=== PATIENT | male | born 1940 ===

== ENCOUNTER → 2023-07-07 14:24 | Outpatient (REF) | payer MEDICARE, BC, SELFPAY ==
[2023-07-07 14:44] LABS: % Basophils 0.9 % (0-2); % Eosinophils 1.3 % (0-6); % Immature Granulocytes 0.4 % (0-0.5); % Lymphocytes 13.4 % (20.5-51.1); % Monocytes 5.2 % (1.7-9.3); % Neutrophils 78.8 % (42.2-75.2); Absolute Basophils 0.1 10^3/uL (0-0.2); Absolute Eosinophils 0.2 10^3/uL (0-0.7); Absolute Immature Granulocytes 0.1 10^3/uL (0-0.05); Absolute Lymphocytes 1.8 10^3/uL (1.2-3.4); Absolute Monocytes 0.7 10^3/uL (0.1-0.6); Absolute Neutrophils 10.8 10^3/uL (1.4-6.5); Hematocrit 41.1 % (39.0-52.0); Hemoglobin 14.3 g/dL (13.0-18.0); Mean Corp Hgb Conc. 34.8 g/dL (33.0-37.0); Mean Corpuscular Hgb 28.8 pg (27.0-31.0); Mean Corpuscular Volume 82.9 fL (80.0-94.0); Mean Platelet Volume 9.7 fL (7.4-10.4); Nucleated Red Blood Cells % 0 % (-); Platelet Count 384 10^3/uL (130-400); Red Blood Cell Count 4.96 10^6/uL (4.70-6.10); Red Cell Dist. Width 13.3 % (11.5-14.5); White Blood Cell Count 13.7 10^3/uL (4.8-10.8)
[2023-07-07 15:00] LABS: ALT (SGPT) < 10 U/L (0-50); AST (SGOT) 17 U/L (17-59); Albumin 3.9 g/dl (3.5-5.0); Alkaline Phosphatase 123 U/L (38-126); Blood Urea Nitrogen 31 mg/dl (9-20); Calcium 9.5 mg/dl (8.4-10.2); Carbon Dioxide 24 mmol/L (22-30); Chloride 102 mmol/L (98-107); Glucose 123 mg/dl (70-99); Potassium 3.9 mmol/L (3.5-5.1); Sodium 139 mmol/L (135-145); Total Bilirubin 0.7 mg/dl (0.2-1.3); eGFR > 60.00
== END ==
LOC: OLABPATH 14:24
PROVIDERS: ATTENDING PHYSICIAN Internal Medicine
DX: F03.90 Unspecified dementia, unspecified severity, without behavioral disturbance, psychotic disturbance, mood disturbance, and anxiety (principal); G20.A1 Parkinson's disease without dyskinesia, without mention of fluctuations
CPT/HCPCS: 36415; 80053; 85025

== ENCOUNTER 2023-07-13 05:43 | Emergency (ER) | payer MEDICARE, BC, SELFPAY ==
[2023-07-13 05:43] VITALS: BMI 19.2
[2023-07-13 05:50] VITALS: BP 145/61
--- NOTE | 2023-07-13 06:12 | ED.GENMED ---
History of Present Illness
General
Chief Complaint: Catheter/Tube Problem
Source: patient and [facility] records
Exam Limitations: none
Time Seen by Provider: 07/13/23 06:04
Nursing documentation reviewed up to this point in time: agreed with
Travel History
Have you had any contact with someone who has COVID-19?: No
Do you have any symptoms of coronavirus? Fever > 100 degrees, chills, cough, shortness of breath, sore throat, loss of taste or smell, muscle aches, or headache?: No
History of Present Illness
History of Present Illness:
82-year-old male with a past medical history of Parkinson's disease, chronic urinary retention with chronic Lopez catheter who presents to the emergency department via EMS from the [facility] [place] where he lives in [facility]; he presents
after accidentally dislodging his chronic Lopez catheter. He says that he was 'wrestling with his clothes' and tossing and turning in bed last night and accidentally dislodged his catheter. I spoke with the nursing staff, they report it was an 18
Jordanian catheter. It was maintained in place due to urinary retention he says related to his Parkinson's disease. He was sent to the emergency room for assessment. He denies any urethral pain or any other complaints today.
Review of Systems
Review of Systems
All Other Systems: ROS reviewed and negative except as documented in HPI and ROS
Constitutional: Denies fever
Respiratory: Denies trouble breathing
Cardiac: Denies chest pain
ABD/GI: Denies abdominal pain
Musculoskeletal: Denies neck pain or back pain
Neurological: Denies headache
Phy Exam
Physical Exam
Physical Exam:
General: Somewhat cachectic but alert and not in distress
HEENT: protecting airway
Neck: appears supple
CV: No evidence of cyanosis
Resp: No accessory muscle use
Abd: Non-distended, nontender to deep palpation
: Patient has minor tear at the urethral meatus, no blood in the meatus
Extremities: No deformities
Neuro: Awake and alert, answering questions appropriately
Psych: Normal affect
Scores
Heart Failure Risk
Heart Failure Risk Score: Not Applicable
Heart Score for Chest Pain Patients
STEMI patient?: Not applicable
Withdrawal Assessment of Alcohol
Withdrawal Assessment Completed?: Not applicable
Course
Orders/Labs/Results
Orders:
Orders
07/13/23 06:22
Lidocaine 2% [Lidocaine Uro-Jet 2%] 1 syringe .[facility]
Vital Signs
Initial and Last Documented VS:
Initial Vital Signs
Temp Pulse Resp BP
36.6 C 59 16 145/61
07/13/23 05:50 07/13/23 05:50 07/13/23 05:50 07/13/23 05:50
Last Documented Vital Signs
Temp Pulse Resp BP
36.6 C 59 16 145/61
07/13/23 05:50 07/13/23 05:50 07/13/23 05:50 07/13/23 05:50
MDM/Problems Addressed
Differential Diagnosis Includes:
Lopez dislodged
MDM/Problems Addressed:
82-year-old male presents to the emergency room from the [facility] and wanting more he lives in [facility] for evaluation after accidentally pulling out his catheter. Patient says that he was rolling over/tossing and turning in bed and pulled out
his catheter. He has this catheter for urinary retention related to his Parkinson's disease. He does have some urethral trauma and a tear at the meatus. Discussed with urology recommended replacing catheter and local wound care. 18 Jordanian
catheter placed at bedside by nurse without difficulty. 1200 cc of clean urine without blood returned. Will plan to discharge back to facility will need urology follow-up outpatient�he says he sees Dr. Benitez for urology. Spoke to nursing staff
at [facility] to update.
Chronic conditions affecting care:
Parkinson's disease
*Pulse Oximetry
Patient hypoxic: no
*Critical Care Note
Total Time (30-74mins, 75-104mins- exclusive of procedures): Not Applicable
Data Reviewed
Source: [facility], [facility] and [facility] records
Patient Management
Discussion with other providers: [employer] (Discussed with urology) and [facility] staff (Spoke directly with [facility] staff)
ED Attending Note
-
Portions of this chart may have been created with voice recognition software.� Occasional wrong word or��sound alike� substitutions may have occurred due to the inherent limitations of voice recognition software.
Discharge Plan
Departure
Patient Disposition: Home (Routine Discharge)
Date of Disposition: 07/13/23
Time of Disposition: 06:48
Patient with high blood pressure during this ER visit?: No
Discharge Problem:
Injury of male urethra, Dislodged Lopez catheter
Instructions: How to Care for Your Lopez Catheter, Male
Referrals:
Reza Evangelista MD [Active] - Call in 1-3 days for appt (You should follow-up with your urologist within the next week to have your urethra reassessed; you can also follow-up with a urologist at the number above.)
Activity Restrictions/Additional Instructions:
Thank you for visiting the Emergency Department at [facility].
1. Please schedule a follow up appointment as directed. Call first thing tomorrow morning to make an appointment.
2. If indicated, please take your medications as instructed and indicated on discharge paperwork.
3. If any of your symptoms do not improve, or persist, or become more severe within 6-12 hours, please return to the emergency department for further care.
4. Please return to the emergency department if you develop a headache, neck pain/stiffness, fever greater than 100.4F, chest pain, shortness of breath, persistent nausea, vomiting, slurred speech, difficulty walking, numbness/tingling, weakness,
signs of infection or any other symptoms that are worrisome to you.
Please call [phone] if you have any questions.
Interventions
Interventions:
*Risk Screen - Suicide Last Done: 07/13/23 06:16
*General Assessment Last Done: 07/13/23 05:50
AF-Ahiatl-Twtztfjblo Assessment Last Done: 07/13/23 06:16
ED-Male Genitourinary Assessment Last Done: 07/13/23 06:16
Discharge Date and Time
Print Language: RWANDAN
[2023-07-13 07:29] VITALS: BP 160/78
[2023-07-13 08:00] VITALS: BP 141/69
[2023-07-13 09:00] VITALS: BP 144/71
[2023-07-13 10:28] VITALS: BP 127/74
== END 2023-07-13 11:13 | disposition home or self-care (01) ==
LOC: EMR 05:43
PROVIDERS: EMERGENCY PHYSICIAN Emergency Medicine; FAMILY PHYSICIAN Internal Medicine
DX: T83.021A Displacement of indwelling urethral catheter, initial encounter (principal); Y93.72 Activity, wrestling; G20.A1 Parkinson's disease without dyskinesia, without mention of fluctuations
CPT/HCPCS: 99282; 51702

== ENCOUNTER 2023-07-26 22:57 | Inpatient (IN) | payer MEDICARE, BC, SELFPAY ==
[2023-07-26 20:05] VITALS: BP 147/79
[2023-07-26 20:53] LABS: ALT (SGPT) 14 U/L (0-50); AST (SGOT) 26 U/L (17-59); Albumin 4.6 g/dl (3.5-5.0); Alkaline Phosphatase 137 U/L (38-126); Blood Urea Nitrogen 34 mg/dl (9-20); Calcium 10.3 mg/dl (8.4-10.2); Carbon Dioxide 20 mmol/L (22-30); Chloride 103 mmol/L (98-107); Glucose 134 mg/dl (70-99); Potassium 4.4 mmol/L (3.5-5.1); Sodium 139 mmol/L (135-145); Total Bilirubin 0.9 mg/dl (0.2-1.3); Total Protein 7.9 g/dl (6.3-8.2); eGFR 55.53
--- NOTE | 2023-07-26 21:02 | ED.GENMED ---
History of Present Illness
General
Chief Complaint: Male Genito-Urinary Symptoms
Source: patient
Exam Limitations: none
Time Seen by Provider: 07/26/23 20:50
Travel History
Have you had any contact with someone who has COVID-19?: No
Do you have any symptoms of coronavirus? Fever > 100 degrees, chills, cough, shortness of breath, sore throat, loss of taste or smell, muscle aches, or headache?: No
History of Present Illness
History of Present Illness:
This is a 82 year old male that comes in with c/o pain in the penis and blood in his urine according to his . States that today he started c/o his penis hurting and then he would start to shake. States that this continued to get worse
throughout the day. States that he was given Tylenol 2 tabs at 4pm. Denies any chest pain, SOB, abd pain, nausea, vomiting, diarrhea, headache, dizziness. Camara catheter remains intact.
Past History
Past History
ED Past Medical History: GERD and Other (Chronic indwelling camara, Dementia, Parkinson's, )
ED Past Surgical History: Orthopedic (Right Total knee replacement)
Social History
Tobacco: Former smoker
Alcohol: None
Personal:
Living: [facility]
Review of Systems
Review of Systems
Other source history: family
All Other Systems: ROS reviewed and negative except as documented in HPI and ROS (and patient)
Constitutional: Reports fever and chills
EENT: Reports no symptoms
Respiratory: Reports no symptoms; Denies cough or trouble breathing
Cardiac: Reports no symptoms
ABD/GI: Reports no symptoms; Denies abdominal pain, nausea, vomiting or diarrhea
: Reports frequency and other (Indwelling catheter)
Musculoskeletal: Reports no symptoms
Skin: Reports no symptoms
Neurological: Reports no symptoms; Denies dizzy or headache
Psychiatric: Reports no symptoms
Phy Exam
General Physical Exam
General Presentation: no apparent distress
General age: appears stated age
General Skin: warm and dry
General Habitus: debilitated and elderly
General Mental: usual mental status
General Hydration: dry mucous membranes
ENT Exam
ENT Exam: TM's normal and pharynx normal
Eye Exam
Eye Exam: EOMI
Cardiovascular Exam
Cardiovascular Exam: regular rate/rhythm and normal peripheral pulses
Pulmonary Exam
Pulmonary Exam: lungs clear, no respiratory distress, no rales, chest non tender, no crackles, no rhonchi, no wheezing and no cough
Gastrointestinal Exam
Gastrointestinal Exam: normal bowel sounds, non tender, soft, no organomegaly, no pulsatile mass and non distended
Genitourinary Exam Male
Exam Male: other (Bilateral fungal rash noted in groin of )
Musculoskeletal Exam
Musculoskeletal Exam: edema (Slight lower leg edema +1) and other (patient legs are stiff due to his parkinson's)
Skin Exam
Skin Exam: normal color, warm/dry, no rash and no petechia
Psychiatric Exam
Psychiatric Exam: normal mood/affect
Course
Orders/Labs/Results
Orders:
Orders
07/26/23 20:21
Comprehensive Metabolic Panel Urgent
Lactic Acid Urgent
Blood Culture Urgent
TACHO Source: Blood/Venous
Specimen Description:
07/26/23 21:00
0.9% Sodium Chloride 1000 ml [Nss] 1,000 ml IV BOLUS
07/26/23 21:03
0.9% Sodium Chloride 500 ml [Nss] 500 ml IV BOLUS
07/26/23 21:20
Complete Blood Count/With Diff Urgent
Urinalysis Reflex To Culture Urgent
Date Specimen was Collected: 07/26/23
Time Specimen was Collected: 21:09
Urine Microscopic Reflex Cult Urgent
Blood Culture Urgent
TACHO Source: Blood/Venous
Specimen Description:
Urine Culture Urgent
TACHO Source: U
Specimen Description:
Date Specimen was Collected: 07/26/23
Time Specimen was Collected: 21:09
07/26/23 21:47
CefTRIAXone [Rocephin] 1,000 mg IV NOW STA
07/26/23 22:11
Camara Placement- Treatment ONCE
Reason for insertion: Chronic Camara on Admit
Abnormal Lab Results
07/26/23 07/26/23
20:21 21:20
WBC 26.3 H 10^3/uL
(4.8-10.8)
RDW 14.6 H %
(11.5-14.5)
Abs Immat Gran (auto) 0.1 H 10^3/uL
(0-0.05)
Absolute Neuts (auto) 23.0 H 10^3/uL
(1.4-6.5)
Absolute Lymphs (auto) 0.9 L 10^3/uL
(1.2-3.4)
Absolute Monos (auto) 2.1 H 10^3/uL
(0.1-0.6)
Neutrophils % 87.6 H %
(42.2-75.2)
Lymphocytes % 3.5 L %
(20.5-51.1)
Carbon Dioxide 20 L mmol/L
(22-30)
BUN 34 H mg/dl
(9-20)
Glucose 134 H mg/dl
(70-99)
Lactic Acid 4.0 H* mmol/L
(0.7-2.0)
Calcium 10.3 H mg/dl
(8.4-10.2)
Alkaline Phosphatase 137 H U/L
(38-126)
Ur Occult Blood Reflex 4+ A
(Negative)
Leukocyte Esterase Rfl 2+ A
(Negative)
Urine RBC 26-30 A /HPF
(0-2)
Urine WBC (Reflex) 50-60 A /HPF
(0-5)
Urine Bacteria (Reflex) Many A
(Negative)
Urine Albumin (Reflex) 2+ A
(Neg - Trace)
07/26/23 21:20
07/26/23 20:21
Carbon dioxide slightly low. Dehydration. Glucose nonfasting. Lactic acid elevation at 4.0, Alk phos slightly elevated.
Urine positive for infection.
Vital Signs
Initial and Last Documented VS:
Initial Vital Signs
Temp Pulse Resp BP Pulse Ox
101.2 F H 107 20 147/79 96
07/26/23 20:05 07/26/23 20:05 07/26/23 20:05 07/26/23 20:05 07/26/23 20:05
Last Documented Vital Signs
Temp Pulse Resp BP Pulse Ox
101.2 F H 107 20 147/79 96
07/26/23 20:05 07/26/23 20:05 07/26/23 20:05 07/26/23 20:05 07/26/23 20:05
MDM/Problems Addressed
Differential Diagnosis Includes:
Urosepsis,
MDM/Problems Addressed:
This is a 82 year old male that is brought in by family with c/o pain at the penis and blood in his urine. states that this started today and then he has had chills.
Will get labs, Urine and give IV fluids. Explained that he will be admitted as his Lactic acid is elevate and this is most likely a UTI.
Chronic conditions affecting care:
Indwelling catheter
Acute Exacerbation and/or Progression of Chronic Illness:
Indwelling catheter chronic
*Pulse Oximetry
Patient hypoxic: no
*EKG
Interpreted by ED Provider?: NA
Rate: EKG- N/A
*Air Conditioning Service Technician Interpretation
Rate: Air Conditioning Service Technician- N/A
*Critical Care Note
Total Time (30-74mins, 75-104mins- exclusive of procedures): Not Applicable
ED Attending Note
-
Portions of this chart may have been created with voice recognition software.� Occasional wrong word or��sound alike� substitutions may have occurred due to the inherent limitations of voice recognition software.
Discharge Plan
Departure
Patient Disposition: Admit
Date of Disposition: 07/26/23
Time of Disposition: 22:13
Admit to: Med/Surg
Presentation/result/management discussed w/ accepting MD/DO: Hospitalist
Patient with high blood pressure during this ER visit?: Yes
Condition: Good
Covid-19: Not Applicable
Discharge Problem:
Urinary tract infection, Acute dehydration
Prescriptions:
No Action
acetaminophen [Tylenol] 325 mg Tablet
650 mg PO DAILY
acetaminophen [Tylenol] 325 mg Tablet
650 mg PO Q6HPRN PRN (Reason: mild pain)
Triple Antibiotic 3.5mg-400 unit- 5,000 unit/gram Ointment
1 applic TOPICAL BID
polyethylene glycol 3350 [Miralax] 17 gram Powder In Packet
17 g PO DAILYPRN PRN (Reason: constipation)
carbidopa-levodopa 25-250 mg Tablet
1.5 tab PO QID
amantadine HCl 100 mg Capsule
100 mg PO BID
tamsulosin [Flomax] 0.4 mg Capsule
0.4 mg PO HS
amlodipine [Norvasc] 10 mg Tablet
10 mg PO DAILY
finasteride 5 mg Tablet
5 mg PO DAILY
rosuvastatin [Crestor] 10 mg Tablet
10 mg PO HS
chlorhexidine gluconate 0.12 % Mouthwash
15 ml mucous membrane BID
Interventions
Interventions:
*Risk Screen - Suicide Last Done: 07/26/23 20:05
*General Assessment Last Done: 07/26/23 20:05
*Neglect/Abuse Screening Last Done: 07/26/23 20:54
*ED COVID-19 Vaccine History Last Done: 07/26/23 20:05
Discharge Date and Time
Print Language: HEBREW
[2023-07-26 21:33] LABS: % Basophils 0.4 % (0-2); % Immature Granulocytes 0.5 % (0-0.5); % Lymphocytes 3.5 % (20.5-51.1); % Neutrophils 87.6 % (42.2-75.2); Absolute Basophils 0.1 10^3/uL (0-0.2); Absolute Immature Granulocytes 0.1 10^3/uL (0-0.05); Absolute Lymphocytes 0.9 10^3/uL (1.2-3.4); Absolute Monocytes 2.1 10^3/uL (0.1-0.6); Hematocrit 40.1 % (39.0-52.0); Mean Corp Hgb Conc. 34.9 g/dL (33.0-37.0); Mean Corpuscular Hgb 28.5 pg (27.0-31.0); Mean Corpuscular Volume 81.5 fL (80.0-94.0); Mean Platelet Volume 9.9 fL (7.4-10.4); Nucleated Red Blood Cells % 0 % (-); Platelet Count 290 10^3/uL (130-400); Red Blood Cell Count 4.92 10^6/uL (4.70-6.10); Red Cell Dist. Width 14.6 % (11.5-14.5); White Blood Cell Count 26.3 10^3/uL (4.8-10.8)
[2023-07-26] MEDS: NSS 1000 IV (21:50)
[2023-07-26] MEDS: NSS 500 IV (21:50)
[2023-07-26 22:00] LABS: Urine Albumin 2+ (Neg - Trace); Urine Bilirubin Negative (Negative); Urine Character Mucous (Clear); Urine Color Yellow; Urine Glucose Negative (Negative); Urine Ketone Negative (Negative); Urine Leukocyte 2+ (Negative); Urine Nitrite Negative (Negative); Urine Occult Blood 4+ (Negative); Urine Urobilinogen Negative (Neg - 1+)
[2023-07-26 22:06] LABS: Urine Squamous Cell 0-2 /LPF (Few)
[2023-07-26 22:07] LABS: Urine Red Blood Cell 26-30 /HPF (0-2)
[2023-07-26 22:08] LABS: Urine Bacteria Many (Negative); Urine White Cell 50-60 /HPF (0-5)
--- NOTE | 2023-07-26 22:08 | EDRN ---
Pt arrives w 18fr camara catheter that was not draining. Removed catheter and a large amount of blood and a clot came out. Exchanged by this RN for a 18fr camara catheter. Pt with much relief after insertion.
[2023-07-26] MEDS: ROCEPHIN 1000 MG IV (22:11)
[2023-07-26 22:14] VITALS: BP 144/75
[2023-07-26] MEDS: OFIRMEV 100 IV (22:22)
--- NOTE | 2023-07-26 22:41 | HPS.HSE ---
Family Physician
-
Family Physician:
Chief Complaint
-
Hematuria
History of Present Illness
Patient is 82 y/o male past medical history of dementia, Parkinson disease and chronic Lopez who presents with hematuria. Patient is unable to provide any additional history. Initially patient's was present in the emergency department but is
no longer available therefore history is obtained from review of emergency department documentation and review with emergency department staff. Patient was seen at the ED on July 12 for dislodged Lopez catheter which was replaced and patient was
discharge back to his assisted facility. noted some blood in patient's urine and patient was complaining of pain in his penis. In the emergency department he was found to be febrile. Work-up is consistent with a urinary tract infection.
Medical History
Past Medical History
Past Medical History: Reports Other
Additional Past Medical History:
Parkinson's Disease
Dementia
Essential Hypertension
Hyperlipidemia
BPH
Chronic Urinary Retention with Chronic Lopez
Past Surgical History: Reports Other
Additional Past Surgical History:
Right Total Knee Replacement
Social History
Unable to obtain full social history at this time due to: Dementia
Living: Assisted Living
Family History
Family History: Unable to Obtain
Allergies / Home Medications
Allergies reflects when Allergies were last updated in [facility].
Home Medications with original date entered in [facility]
Allergy/Medication List:
Allergies
Allergy/AdvReac Type Severity Reaction Status Date / Time
No Known Allergies Allergy Verified 07/26/23 20:10
Home Medications
acetaminophen 325 mg tablet (Tylenol) 650 mg PO DAILY 07/26/23
acetaminophen 325 mg tablet (Tylenol) 650 mg PO Q6HPRN PRN mild pain 07/26/23
amantadine HCl 100 mg capsule 100 mg PO BID 07/26/23
amlodipine 10 mg tablet (Norvasc) 10 mg PO DAILY 07/26/23
carbidopa 25 mg-levodopa 250 mg tablet 1.5 tab PO QID 07/26/23
chlorhexidine gluconate 0.12 % mouthwash 15 ml mucous membrane BID 07/26/23
finasteride 5 mg tablet 5 mg PO DAILY 07/26/23
neomycin-bacitracn Zn-polymyx 3.5 mg-400 unit-5,000 unit/gram top oint (Triple Antibiotic) 1 applic topical BID urethral tear 07/26/23
polyethylene glycol 3350 17 gram oral powder packet (Miralax) 17 g PO DAILYPRN PRN constipation 07/26/23
rosuvastatin 10 mg tablet 10 mg PO HS 07/26/23
tamsulosin 0.4 mg capsule (Flomax) 0.4 mg PO HS 07/26/23
Review of Systems
-
Unable to obtain full review of systems at this time due to: Dementia
Physical Exam
Vital Signs
Vital Signs
Temp Pulse Resp BP Pulse Ox
101.2 F H 101 22 144/75 96
07/26/23 20:05 07/26/23 22:15 07/26/23 22:15 07/26/23 22:14 07/26/23 22:24
Physical Exam
General: Well Developed and Well Nourished
HEENT: Anicteric and Other (Mucous membrane appears quite dry)
Respiratory: Clear and Non Labored Respirations
Cardiac: S1/S2 and Regular Rhythm
GI: Soft and Non Tender
Genito-urinary: Lopez (Cloudy urine)
Musculoskeletal: No Clubbing, No Cyanosis and No Edema
Skin: Warm and Dry
Neuro: Awake, Alert, Nonfocal/grossly intact and Tremors
Laboratory Results
-
07/26/23 21:20
07/26/23 20:21
Laboratory Results
Lactic Acid 4.0 mmol/L (0.7-2.0) H* 07/26/23 20:21
Total Bilirubin 0.9 mg/dl (0.2-1.3) 07/26/23 20:21
AST 26 U/L (17-59) 07/26/23 20:21
ALT 14 U/L (0-50) 07/26/23 20:21
Alkaline Phosphatase 137 U/L (38-126) H 07/26/23 20:21
Data Reviewed
-
Lab Data: Labs Reviewed by me
Impression/Plan
-
Sepsis secondary to Catheter Associated Urinary Tract Infection
-Lopez catheter exchanged in the emergency department
-Continue ceftriaxone
-Await urine and blood cultures
Parkinson's Disease
-Continue Sinemet and Amantadine
-Unknown baseline mobility and diet
-Allow pureed diet until seen by speech
-Consult PT/OT
Dementia
-Monitor for mood/behavior changes during hospital
Essential Hypertension
-Hold amlodipine
-Add hydralazine prn
-Monitor blood pressure and resume amlodipine following speech evaluation
Hyperlipidemia
-Hold Crestor
BPH
-Hold finasteride and tamsulosin
DVT proph: SCDs
Code Status: Full Code (Need to discuss with in AM as she is no longer available and I was unable to locate paperwork from the facility)
--- NOTE | 2023-07-26 22:43 | W.PN.UPDATE ---
Update Note
Progress Note Update
This is an addendum to the H&P written by Farhana Robles on 07/26/2023.
82-year-old male past medical history of dementia unknown severity, Parkinson's disease, BPH, chronic Lopez catheter, presenting with blood in the urine, pain at tip of penis and chills.
Patient with fever one 101.2. Tachycardia. Labs show leukocytosis, lactic acidosis. Urinalysis showed 50-60 WBC, mucoid urine consistent with sepsis secondary to urinary tract infection secondary to chronic Lopez catheter. Lopez catheter was
exchanged in ER. IV fluids, check urine culture, blood cultures, ceftriaxone. Unclear if patient can eat/take meds. Pureed diet, speech and swallow.
[2023-07-26 23:00] VITALS: BP 153/77
[2023-07-27] VITALS (16 sets, daily range): BP systolic 112–177; BP diastolic 55–98; PULSE 77–78; BMI 21.0
[2023-07-27 00:55] LABS: Lactic Acid 1.8 mmol/L (0.7-2.0)
[2023-07-27] MEDS: SINEMET 25-250 1.5 TABLET PO ×3 (09:16→23:10)
[2023-07-27] MEDS: SYMMETREL 100 MG PO ×2 (09:16→21:14)
[2023-07-27] MEDS: NSS 1000 IV ×2 (09:17→18:29)
--- NOTE | 2023-07-27 10:43 | PTOTSP ---
Dysphagia Evaluation
Patient presents with WFL-mild oral stage of swallowing and no signs of pharyngeal dysphagia or signs of aspiration.
Recommend:
1. Regular, Thin Liquids
2. Strategies: supervision/assistance, upright to 90 degrees, small single sips/bites, slow rate, alternate solids and liquids
3. Oral care 3x daily
4. Medications as best tolerated
5. No further dysphagia therapy at the acute care level. Please reconsult as appropriate. Consider SSN/SSBN WEAPONS EQUIPMENT OPERATOR consult for speech therapy upon D/C from acute care.
--- NOTE | 2023-07-27 13:38 | W.PN.HOSP.TC ---
Today's Communication/Plan
-
Continue current antibiotics
Follow culture data
Repeat blood cultures
Assessment / Plan
Assessment / Plan
Sepsis secondary to Catheter Associated Urinary Tract Infection
Gram-negative bacteriuria suspected urinary origin
Proteus UTI
-Lopez catheter exchanged in the emergency department
-Continue ceftriaxone
-Await urine and blood cultures
Parkinson's Disease
-Continue Sinemet and Amantadine
-Unknown baseline mobility and diet
-Allow pureed diet until seen by speech
-Consult PT/OT
Dementia
-Monitor for mood/behavior changes during hospital
Essential Hypertension
-Hold amlodipine
-Add hydralazine prn
-Monitor blood pressure and resume amlodipine following speech evaluation
Hyperlipidemia
-Hold Crestor
BPH
-Resume finasteride and tamsulosin .patient is due for prostate surgery next week
DVT proph: SCDs
Code Status: Full Code
Anticipated Discharge: 24 - 48 hours
Subjective/Interval History
-
Date of Service: July 27, 2023
Feeling better today.
Denies any nausea vomiting.
Denies any abdominal pain or flank pain.
Objective Data
-
Vital Signs:
Vital Signs
Temp Pulse Resp BP Pulse Ox
99.3 F 76 16 128/72 96
07/27/23 00:41 07/27/23 11:00 07/27/23 11:00 07/27/23 11:00 07/27/23 06:15
I&O
07/26/23 07/27/23 07/28/23
06:59 06:59 06:59
Output Total 2850 / 2850
Balance -2850 / -2850
Review of Systems
-
Respiratory: Denies Trouble Breathing
Cardiac: Denies Chest Pain
Neuro: Denies Dizzy
Physical Exam
-
General: No Apparent Distress
HEENT: Moist Mucous Membranes
Respiratory: Clear to Auscultation
Cardiac: Regular Rhythm and S1/S2
Genito-urinary: No Costovertebral Tender
Neuro: AO x 3
Psych: Calm
Data Reviewed
-
Labs: Labs Reviewed by me
[2023-07-27] MEDS: SINEMET 25-250 PO (15:54)
[2023-07-27] MEDS: DESENEX/MITRAZOL/ZEASORB 1 APPLIC TOPICAL ×2 (16:03→21:14)
[2023-07-27] MEDS: ANTIFUNGAL CLEAR 1 APPLIC TOPICAL ×2 (16:04→21:13)
--- NOTE | 2023-07-27 16:04 | PTCARENOTE ---
Received pt from ER via stretcher, accompanied by ER staff. Pt AAO x3, speech soft; pt DODGE slowly/stiffly; legs weak, unable to stand to transfer to bed. Pt transferred to bed with assist x3. VSS. Placed on telemetry:NSR with PVC's. On room
air- pulseox 95%, no SOB noted. Abd soft, rounded, BS (+); to start Idd4 diet/thin liquids; pt/ deny dysphagia. Lopez P/I large amts clear yellow urine; Stat lock applied to Rt thigh. Pt groin/concepcion area reddened/excoriated. IVF's NSS @ 100
ml/hr infusing via Rt AC site without sx of infiltration. Resting in bed at present, no c/o. Will continue to monitor..
[2023-07-27] MEDS: TYLENOL 650 MG PO (16:45)
[2023-07-27] MEDS: FLOMAX 0.400000000000000022 MG PO (21:14)
[2023-07-27] MEDS: STERILE WATER FOR INJECTION 10 ML IV (21:15)
[2023-07-27] MEDS: ROCEPHIN 1000 MG IV (21:15)
[2023-07-28] MEDS: NSS 1000 IV ×2 (02:55→11:30)
[2023-07-28 03:13] VITALS: BP 131/80
[2023-07-28] MEDS: TYLENOL 650 MG PO (04:54)
[2023-07-28 05:50] LABS: Hematocrit 37.1 % (39.0-52.0); Hemoglobin 12.5 g/dL (13.0-18.0); Mean Corp Hgb Conc. 33.7 g/dL (33.0-37.0); Mean Corpuscular Volume 83.2 fL (80.0-94.0); Mean Platelet Volume 10.3 fL (7.4-10.4); Platelet Count 206 10^3/uL (130-400); Red Blood Cell Count 4.46 10^6/uL (4.70-6.10); Red Cell Dist. Width 14.7 % (11.5-14.5)
[2023-07-28 06:01] VITALS: BMI 21.1
[2023-07-28 06:15] LABS: Blood Urea Nitrogen 22 mg/dl (9-20); Calcium 8.4 mg/dl (8.4-10.2); Carbon Dioxide 25 mmol/L (22-30); Chloride 106 mmol/L (98-107); Estimated Creatinine Clearance 55 ml/min; Glucose 97 mg/dl (70-99); Potassium 3.5 mmol/L (3.5-5.1); Sodium 140 mmol/L (135-145); eGFR > 60.00
[2023-07-28 07:30] VITALS: BP 127/72
[2023-07-28] MEDS: SINEMET 25-250 1.5 TABLET PO ×4 (08:11→22:46)
[2023-07-28] MEDS: PROSCAR 5 MG PO (08:11)
[2023-07-28] MEDS: SYMMETREL 100 MG PO ×2 (08:11→20:26)
[2023-07-28] MEDS: DESENEX/MITRAZOL/ZEASORB 1 APPLIC TOPICAL ×2 (08:12→20:27)
[2023-07-28] MEDS: ANTIFUNGAL CLEAR 1 APPLIC TOPICAL ×2 (08:13→20:27)
--- NOTE | 2023-07-28 10:56 | W.PN.HOSP.TC ---
Today's Communication/Plan
-
Continue current antibiotics
DC planning
Assessment / Plan
Assessment / Plan
Sepsis secondary to Catheter Associated Urinary Tract Infection
Gram-negative bacteremia secondary to a UTI
Proteus UTI
-Lopez catheter exchanged in the emergency department
-Continue ceftriaxone; afebrile today and improving leukocytosis. Tolerating diet without nausea or vomiting.
-Await identification of blood cultures and sensitivities of Proteus in the urine.
Parkinson's Disease
-Continue Sinemet and Amantadine
-Unknown baseline mobility and diet
-Seen by speech-recommended pur�ed diet
-Continue with PT OT eval
Dementia
-Monitor for mood/behavior changes during hospital
Essential Hypertension
-Resume amlodipine
Hyperlipidemia
-Hold Crestor
BPH
-Resume finasteride and tamsulosin .patient is due for prostate surgery next week
DVT proph: SCDs
Code Status: Full Code
Likely DC in a.m. once the final culture data is available and sensitivities are available.
PT recommends rehab
Case management to look into disposition
Anticipated Discharge: Within 24 hours
Subjective/Interval History
-
Date of Service: July 28, 2023
Patient feels better today.
Denies any nausea vomiting.
No fever or chills.
Tolerating diet.
Objective Data
-
Labs:
Laboratory Results
07/28/23
04:29
WBC 12.0 H
Hgb 12.5 L
Hct 37.1 L
Plt Count 206 D
Sodium 140
Potassium 3.5
Chloride 106
Carbon Dioxide 25
BUN 22 H
Creatinine 0.9
Glucose 97
Calcium 8.4 D
Vital Signs:
Vital Signs
Temp Pulse Resp BP Pulse Ox
97.5 F 75 20 127/72 94
07/28/23 07:30 07/28/23 07:30 07/28/23 07:30 07/28/23 07:30 07/28/23 07:30
I&O
07/27/23 07/28/23 07/29/23
06:59 06:59 06:59
Intake Total 700 / 700
Output Total 2850 / 2850 1900 / 1900
Balance -2850 / -2850 -1200 / -1200
Review of Systems
-
Respiratory: Denies Trouble Breathing
Cardiac: Denies Chest Pain
Neuro: Denies Dizzy
Physical Exam
-
General: No Apparent Distress
HEENT: Moist Mucous Membranes
Respiratory: Clear to Auscultation (Anteriorly)
Cardiac: Regular Rhythm and S1/S2
GI: Soft, Nontender, Nondistended and Normal Bowel Sounds
Genito-urinary: Clear Urine and Lopez
Neuro: Awake, Alert and Oriented
Psych: Calm
Data Reviewed
-
Labs: Labs Reviewed by me
[2023-07-28 11:13] VITALS: BP 126/64
[2023-07-28] MEDS: NORVASC 10 MG PO (11:30)
--- NOTE | 2023-07-28 16:02 | CM ---
Alert awake forgetful patient who has a Keila Brady who lives at [facility]. requested he return to [facility]. He is assisted in all activities of daily living.He uses a wheelchair.
Moe PERDOMO hx / [place] history
Pharmacy [facility] [address]
PCP DR Keila BUCKLEY
PLAN Return to [facility]
[2023-07-28 16:18] VITALS: BP 117/55
[2023-07-28 19:41] VITALS: BP 127/68
[2023-07-28] MEDS: FLOMAX 0.400000000000000022 MG PO (22:46)
[2023-07-28] MEDS: CRESTOR 10 MG PO (22:46)
[2023-07-28] MEDS: STERILE WATER FOR INJECTION 10 ML IV (22:50)
[2023-07-28] MEDS: ROCEPHIN 1000 MG IV (22:50)
[2023-07-28 23:14] VITALS: BP 127/75
[2023-07-29 03:23] VITALS: BP 133/78
[2023-07-29 04:50] VITALS: BMI 21.0
[2023-07-29 07:55] VITALS: BP 142/78
[2023-07-29] MEDS: NORVASC 10 MG PO (08:14)
[2023-07-29] MEDS: SINEMET 25-250 1.5 TABLET PO ×4 (08:14→21:36)
[2023-07-29] MEDS: PROSCAR 5 MG PO (08:15)
[2023-07-29] MEDS: SYMMETREL 100 MG PO ×2 (08:15→20:42)
[2023-07-29] MEDS: ANTIFUNGAL CLEAR 1 APPLIC TOPICAL ×2 (08:16→20:43)
[2023-07-29] MEDS: DESENEX/MITRAZOL/ZEASORB 1 APPLIC TOPICAL ×2 (08:16→20:43)
--- NOTE | 2023-07-29 09:55 | W.PN.HOSP.TC ---
Today's Communication/Plan
-
Spoke to case management see if we can arrange a discharge plan for him may not be amenable to [facility] at this time
Once discharge plan in place can transition to an oral antibiotic either cefazolin or Keflex or cefdinir
Assessment / Plan
Assessment / Plan
Sepsis secondary to Catheter Associated Urinary Tract Infection
Gram-negative bacteremia secondary to a UTI Proteus in blood
Proteus UTI
-Lopez catheter exchanged in the emergency department
-Continue ceftriaxone; afebrile today and improving leukocytosis. Tolerating diet without nausea or vomiting.
-Await identification of blood cultures and sensitivities of Proteus in the urine.
-Will place on another week course of cefdinir once discharge plan in place/unclear whether he can go back to [facility] is assisted living given his infirmities
Parkinson's Disease
-Continue Sinemet and Amantadine
-Unknown baseline mobility and diet
-Seen by speech-recommended pur�ed diet
-Continue with PT OT eval
Dementia
-Monitor for mood/behavior changes during hospital
Essential Hypertension
-Resume amlodipine
Hyperlipidemia
-Hold Crestor
BPH
-Resume finasteride and tamsulosin .patient is due for prostate surgery next week
DVT proph: SCDs
Code Status: Full Code
Likely DC in a.m. once the final culture data is available and sensitivities are available.
PT recommends rehab
Case management to look into disposition
Anticipated Discharge: Within 24 hours
Subjective/Interval History
-
Date of Service: July 29, 2023
Patient without complaints and doing okay remains on aspiration precautions and modified diet had been at [facility] prior to coming in not sure if that level of care will suffice at this time. Spoke to case management
Objective Data
-
Vital Signs:
Vital Signs
Temp Pulse Resp BP Pulse Ox
97.9 F 68 16 142/78 96
07/29/23 07:55 07/29/23 08:14 07/29/23 07:55 07/29/23 08:14 07/29/23 07:55
I&O
07/28/23 07/29/23 07/30/23
06:59 06:59 06:59
Intake Total 700 / 700 600 / 600
Output Total 1900 / 1900 1999 / 1999
Balance -1200 / -1200 -1400 / -1400
Review of Systems
-
Unable to obtain full review of systems at this time due to: Dementia
History Source: Patient
Constitutional: Reports Fatigue and Weakness
Musculoskeletal: Reports Arthralgias and Myalgias
Neuro: Reports Weakness
Physical Exam
-
HEENT: Normocephalic
Respiratory: Clear to Auscultation
Cardiac: Regular Rhythm
GI: Soft
Genito-urinary: Lopez
Neuro: Awake and Other (Scanning type of speech difficult to comprehend)
Psych: Calm
Data Reviewed
-
Total Time Spent with Patient (in minutes): 45
Labs: Labs Reviewed by me (Proteus in the urine and blood pansensitive)
--- NOTE | 2023-07-29 10:13 | CM ---
Addendum entered by Roxie Goff RN 07/29/23 16:21:
Spoke with [facility] they would prefer pt go to SNF at [facility] .
Spoke with and Edis son . Both agreed with snf.
Choice given Medicare.gov /fpc compare . Infor given.
[facility].
PLAN To Snf after accepted and medically ready.
Original Note:
PT OT indicated Snf.
Contacted Chela at [facility] [phone] reviewed PT evals .
PT evals faxed to [facility] to assess if they can accept back.
in person investigator.
Lopez Maintained.
PLAN [facility] return of SNF.
[2023-07-29 11:46] VITALS: BP 115/70
--- NOTE | 2023-07-29 12:34 | PTOTSP ---
Chart reviewed and spoke with RN; RN spoke with multiple family members of patient, whom all report that patient is bedbound at baseline and has 'not been out of bed in a while.'
Patient not appropriate for skilled therapy at this time and will be discharged.
[2023-07-29 15:10] VITALS: BP 126/69
[2023-07-29] MEDS: MIRALAX 17 GRAMS PO (18:19)
--- NOTE | 2023-07-29 19:30 | PTCARENOTE ---
Patient with complaints of constipation. Given Miralax as ordered. Patient did have a moderate formed BM yesterday. states that he does take bowel medications at home. Good bowel sounds and passing gas.
[2023-07-29 19:36] VITALS: BP 120/74
[2023-07-29] MEDS: CRESTOR 10 MG PO (21:36)
[2023-07-29] MEDS: ROCEPHIN 1000 MG IV (21:36)
[2023-07-29] MEDS: STERILE WATER FOR INJECTION 10 ML IV (21:36)
[2023-07-29] MEDS: FLOMAX 0.400000000000000022 MG PO (21:36)
[2023-07-29 23:07] VITALS: BP 136/74
[2023-07-30] MEDS: MELATONIN 5 MG PO (01:32)
[2023-07-30 03:40] VITALS: BP 118/63
[2023-07-30 04:05] VITALS: BMI 21.2
--- NOTE | 2023-07-30 09:34 | W.PN.HOSP.TC ---
Today's Communication/Plan
-
Medically stable for discharge and transition to an oral antibiotic at discharge to complete course
Awaiting disposition from case management as to facility and decision from family
Assessment / Plan
Assessment / Plan
Sepsis secondary to Catheter Associated Urinary Tract Infection
Gram-negative bacteremia secondary to a UTI Proteus in blood
Proteus UTI
-Lopez catheter exchanged in the emergency department
-Continue ceftriaxone; afebrile today and improving leukocytosis. Tolerating diet without nausea or vomiting.
-Sensitivities noted on both blood and urine
-Will place on another week course of cefdinir once discharge plan in place/ he cannot go back to [facility] is assisted living given his infirmities
Parkinson's Disease
-Continue Sinemet and Amantadine
-Unknown baseline mobility and diet
-Seen by speech-recommended pur�ed diet
-Continue with PT OT eval/now recommending rehab but cannot return to [facility] which was assisted living
Dementia
-Monitor for mood/behavior changes during hospital
Essential Hypertension
-Resume amlodipine
Hyperlipidemia
-Hold Crestor
BPH
-Resume finasteride and tamsulosin .patient is due for prostate surgery next week
DVT proph: SCDs
Code Status: Full Code
Likely DC in a.m. if disposition for placement to rehab found
PT recommends rehab
Case management to look into disposition
Anticipated Discharge: Within 24 hours
Subjective/Interval History
-
Date of Service: July 30, 2023
Due to history of screaming speech otherwise no distress no signs of aspiration we talked at length over the need to go to an acute rehab facility as his prior [facility] residence [facility] was only assisted living and could not take him back as yet
family also made aware
Objective Data
-
Vital Signs:
Vital Signs
Temp Pulse Resp BP Pulse Ox
97.8 F 63 12 118/63 99
07/30/23 07:55 07/30/23 07:55 07/30/23 07:55 07/30/23 03:40 07/30/23 07:55
I&O
07/29/23 07/30/23 07/31/23
06:59 06:59 06:59
Intake Total 600 / 600 1140 / 1140
Output Total 1999 / 1999 1850 / 185
Balance -1400 / -1400 -710 / -710
Physical Exam
-
General: Appears Chronically Ill
HEENT: Normocephalic
Respiratory: Clear to Auscultation
Cardiac: Regular Rhythm
Neuro: Awake and Alert
Psych: Confused
Data Reviewed
-
Total Time Spent with Patient (in minutes): 45
Labs: Labs Reviewed by me
[2023-07-30] MEDS: ANTIFUNGAL CLEAR 1 APPLIC TOPICAL ×2 (09:58→19:30)
[2023-07-30] MEDS: SINEMET 25-250 1.5 TABLET PO ×4 (09:58→21:09)
[2023-07-30] MEDS: DESENEX/MITRAZOL/ZEASORB 1 APPLIC TOPICAL ×2 (09:58→19:30)
[2023-07-30] MEDS: SYMMETREL 100 MG PO ×2 (09:58→19:31)
[2023-07-30] MEDS: NORVASC 10 MG PO (10:00)
[2023-07-30] MEDS: PROSCAR 5 MG PO (10:00)
[2023-07-30 12:13] VITALS: BP 112/61
[2023-07-30 15:00] VITALS: BP 113/64
--- NOTE | 2023-07-30 17:36 | CM ---
Pt from [facility] needs SNF [facility].
Spoke with Edis today son [id number] as follows
[facility] said no beds.
[facility] spoke with [facility] no beds.
[facility] peacock placed no call back.
[facility] [place] no call back .
Cherrie ortiz LM .
[facility] said no beds.
[facility] said no beds.
[facility] said no beds.
Edis to call back with more choices.
Medicare patient.
PLAN To SNF after located
[2023-07-30] MEDS: FLOMAX 0.400000000000000022 MG PO (21:09)
[2023-07-30] MEDS: CRESTOR 10 MG PO (21:09)
[2023-07-30] MEDS: STERILE WATER FOR INJECTION 10 ML IV (21:11)
[2023-07-30] MEDS: ROCEPHIN 1000 MG IV (21:12)
[2023-07-30 23:20] VITALS: BP 130/71
[2023-07-31 05:49] VITALS: BMI 20.4
[2023-07-31 07:12] VITALS: BP 130/69
[2023-07-31] MEDS: SINEMET 25-250 1.5 TABLET PO ×4 (09:28→21:18)
[2023-07-31] MEDS: PROSCAR 5 MG PO (09:28)
[2023-07-31] MEDS: SYMMETREL 100 MG PO ×2 (09:28→20:03)
[2023-07-31] MEDS: NORVASC 10 MG PO (09:28)
[2023-07-31] MEDS: ANTIFUNGAL CLEAR 1 APPLIC TOPICAL ×2 (09:36→20:05)
[2023-07-31] MEDS: DESENEX/MITRAZOL/ZEASORB 1 APPLIC TOPICAL ×2 (09:39→20:05)
--- NOTE | 2023-07-31 11:17 | W.PN.HOSP.TC ---
Today's Communication/Plan
-
Monitor vitals
see plan
Switch antibiotic to cefdinir on discharge
Per manager of case has placement today
Time of discharge 38 minutes
Assessment / Plan
Assessment / Plan
Sepsis secondary to Catheter Associated Urinary Tract Infection
Gram-negative bacteremia secondary to a UTI Proteus in blood
Proteus UTI
-Lopez catheter exchanged in the emergency department
-Continue ceftriaxone; afebrile today and improving leukocytosis. Tolerating diet without nausea or vomiting.
-Sensitivities noted on both blood and urine
-Will place on another week course of cefdinir once discharge plan in place/ he cannot go back to [facility] which is assisted living given his infirmities
Parkinson's Disease
-Continue Sinemet and Amantadine
-Unknown baseline mobility and diet
-Seen by speech-recommended pur�ed diet
-Continue with PT OT eval/now recommending rehab but cannot return to [facility] which was assisted living
Dementia
-Monitor for mood/behavior changes during hospital
Essential Hypertension
-Resume amlodipine
Hyperlipidemia
-Hold Crestor
BPH
-Resume finasteride and tamsulosin .patient is due for prostate surgery next week
DVT proph: SCDs
Code Status: Full Code
PT recommends rehab
Case management to look into disposition
General: Appears Chronically Ill
HEENT: Normocephalic
Respiratory: Clear to Auscultation
Cardiac: Regular Rhythm
Neuro: Awake and Alert
Anticipated Discharge: Today
Subjective/Interval History
-
Date of Service: July 31, 2023
denies pain
Objective Data
-
Vital Signs:
Vital Signs
Temp Pulse Resp BP Pulse Ox
97.9 F 60 16 130/69 96
07/31/23 07:12 07/31/23 07:12 07/31/23 07:12 07/31/23 07:12 07/31/23 08:40
I&O
07/30/23 07/31/23 08/01/23
06:59 06:59 06:59
Intake Total 1140 / 1140 1110 / 1110
Output Total 1850 / 1850 2099 / 2099
Balance -710 / -710 -990 / -990
--- NOTE | 2023-07-31 11:25 | W.DCSUMMARY ---
Discharge Summary
Discharge Data
Date of Admission: 07/26/23
Date of Discharge: 08/02/23
-
Pending Results: No
Hospital Course
82-year-old male with past medical history of chronic catheter, Parkinson disease, dementia, essential hypertension, hyperlipidemia, BPH came to the hospital with sepsis secondary to catheter associated urinary tract infection. Blood culture grew
Proteus. Patient was initially treated with IV antibiotic which was later transitioned to oral antibiotics. Lopez catheter was exchanged on this admission. Patient did have some problems swallowing so speech therapy recommended pur�ed diet.
Patient was also evaluated by physical therapy who recommended SNF placement. Once patient had SNF placement, he was then discharged with instructions to follow-up with all the physicians outpatient.
Discharge Plan
-
Patient Disposition: [facility]
Discharge Diagnosis/Procedures: Sepsis secondary to Catheter Associated Urinary Tract Infection
Proteus bacteremia
Parkinson's disease
Ambulatory dysfunction
Condition: Fair
Diet: Other diet
Additional Diets: Pur�ed IDDSI level 4
Activity: As tolerated
Driving Restrictions: No driving
Bathing Restrictions: None
Referrals:
Salvador Frye DO [Family Provider] - in less than 1 week
Prescriptions:
New
miconazole nitrate [Miconazorb AF] 2 % Powder
1 applic topical BID Qty: 0 0RF
Critic-Aid Clear AF(miconazol) 2 % Ointment
1 applic topical BID Qty: 0 0RF
cefdinir 300 mg Capsule
300 mg PO Q12 Qty: 12 0RF
Continued
acetaminophen [Tylenol] 325 mg Tablet
650 mg PO DAILY
acetaminophen [Tylenol] 325 mg Tablet
650 mg PO Q6HPRN PRN (Reason: mild pain)
Triple Antibiotic 3.5mg-400 unit- 5,000 unit/gram Ointment
1 applic TOPICAL BID
polyethylene glycol 3350 [Miralax] 17 gram Powder In Packet
17 g PO DAILYPRN PRN (Reason: constipation)
carbidopa-levodopa 25-250 mg Tablet
1.5 tab PO QID
amantadine HCl 100 mg Capsule
100 mg PO BID
tamsulosin [Flomax] 0.4 mg Capsule
0.4 mg PO HS
amlodipine [Norvasc] 10 mg Tablet
10 mg PO DAILY
finasteride 5 mg Tablet
5 mg PO DAILY
rosuvastatin 10 mg Tablet
10 mg PO HS
chlorhexidine gluconate 0.12 % Mouthwash
15 ml mucous membrane BID
Discharge Orders:
Discharge Patient (As Directed); Ordered 08/02/23
Ordered By: Armando Calderon
Discharge Date and Time
Discharge Date/Time: 08/02/23 14:35
Print Language: POLISH
--- NOTE | 2023-07-31 11:26 | CM ---
Addendum entered by Bailey Bland 07/31/23 12:54:
Patient toured [facility] and [facility], not comfortable with either facility, concerned about sending patient there, reports she did not see anyone who looks like her there. will continue to look at accepting facilities.
Hospitalist provided with update.
Original Note:
Patient seen bedside with , provided additional list of SNF to send referrals to. CM spoke with Sydney, SNF liaison, [facility] or [facility] can accept patient. CM left message for [facility], [facility], and [facility]
regarding bed availability. going to look at [facility] and [facility], will be back to decide which facility she would like. Patient will require ambulance transportation. CM will continue to follow for discharge planning needs.
Plan; [facility], touring facilities. Patient will require ambulance transport.
[2023-07-31 15:34] VITALS: BP 96/50
[2023-07-31 18:19] VITALS: BP 119/70
[2023-07-31] MEDS: FLOMAX 0.400000000000000022 MG PO (21:04)
[2023-07-31] MEDS: CRESTOR 10 MG PO (21:04)
[2023-07-31] MEDS: STERILE WATER FOR INJECTION 10 ML IV (21:05)
[2023-07-31] MEDS: ROCEPHIN 1000 MG IV (21:05)
[2023-07-31 23:13] VITALS: BP 134/70
[2023-08-01 06:00] VITALS: BMI 20.6
[2023-08-01 07:52] VITALS: BP 128/75
[2023-08-01] MEDS: SINEMET 25-250 1.5 TABLET PO ×4 (09:29→21:01)
[2023-08-01] MEDS: OMNICEF 300 MG PO ×2 (09:29→19:05)
[2023-08-01] MEDS: NORVASC 10 MG PO (09:29)
[2023-08-01] MEDS: SYMMETREL 100 MG PO ×2 (09:29→19:05)
[2023-08-01] MEDS: PROSCAR 5 MG PO (09:30)
[2023-08-01] MEDS: DESENEX/MITRAZOL/ZEASORB 1 APPLIC TOPICAL ×2 (09:31→19:04)
[2023-08-01] MEDS: ANTIFUNGAL CLEAR 1 APPLIC TOPICAL ×2 (09:31→19:05)
--- NOTE | 2023-08-01 11:55 | W.PN.HOSP.TC ---
Today's Communication/Plan
-
monitor vitals
see plan
family to decide on placement
cw abx
Assessment / Plan
Assessment / Plan
Sepsis secondary to Catheter Associated Urinary Tract Infection
Gram-negative bacteremia secondary to a UTI Proteus in blood
Proteus UTI
-Lopez catheter exchanged in the emergency department
Tolerating diet without nausea or vomiting.
-Sensitivities noted on both blood and urine
-changed abx to cefdinir to complete course/ he cannot go [facility] to [facility] living given his infirmities
Parkinson's Disease
-Continue Sinemet and Amantadine
-Unknown baseline mobility and diet
-Seen by speech-recommended pur�ed diet
-Continue with PT OT eval/now recommending rehab but cannot return to [facility] which was assisted living
Dementia
-Monitor for mood/behavior changes during hospital
Essential Hypertension
-Resume amlodipine
Hyperlipidemia
-Hold Crestor
BPH
-Resume finasteride and tamsulosin .patient is due for prostate surgery next week
DVT proph: SCDs
Code Status: Full Code
PT recommends rehab
Case management to look into disposition
General: Appears Chronically Ill
HEENT: Normocephalic
Respiratory: Clear to Auscultation
Cardiac: Regular Rhythm
Neuro: Awake and Alert
Anticipated Discharge: Today
Subjective/Interval History
-
Date of Service: August 01, 2023
denies pain
Objective Data
-
Vital Signs:
Vital Signs
Temp Pulse Resp BP Pulse Ox
97.5 F 60 18 128/75 96
08/01/23 07:52 08/01/23 07:52 08/01/23 07:52 08/01/23 07:52 08/01/23 07:52
I&O
07/31/23 08/01/2308/01/24
06:59 06:59 06:59
Intake Total 1110 / 1110 960 / 960
Output Total 2099 1350 / 1350
Balance -990 / -990 -390 / -390
[2023-08-01 15:52] VITALS: BP 113/66
[2023-08-01] MEDS: CRESTOR 10 MG PO (21:02)
[2023-08-01] MEDS: FLOMAX 0.400000000000000022 MG PO (21:02)
[2023-08-01 22:50] VITALS: BP 120/70
[2023-08-02 06:00] VITALS: BMI 22.6
[2023-08-02 07:00] VITALS: BP 129/80
[2023-08-02] MEDS: DESENEX/MITRAZOL/ZEASORB 1 APPLIC TOPICAL (09:58)
[2023-08-02] MEDS: ANTIFUNGAL CLEAR 1 APPLIC TOPICAL (09:58)
[2023-08-02] MEDS: OMNICEF 300 MG PO (09:59)
[2023-08-02] MEDS: SINEMET 25-250 1.5 TABLET PO ×2 (09:59→13:30)
[2023-08-02] MEDS: PROSCAR 5 MG PO (10:00)
[2023-08-02] MEDS: SYMMETREL 100 MG PO (10:00)
--- NOTE | 2023-08-02 10:00 | W.PN.HOSP.TC ---
Today's Communication/Plan
-
monitor vitals
see plan
dc today as has accepting SNF
spoke with at bedside
cw abx
time of discharge 37minutes
Assessment / Plan
Assessment / Plan
Sepsis secondary to Catheter Associated Urinary Tract Infection
Gram-negative bacteremia secondary to a UTI Proteus in blood
Proteus UTI
-Lopez catheter exchanged in the emergency department
Tolerating diet without nausea or vomiting.
-Sensitivities noted on both blood and urine
-changed abx to cefdinir to complete course/ he cannot go [facility] to [facility] living given his infirmities
Parkinson's Disease
-Continue Sinemet and Amantadine
-Unknown baseline mobility and diet
-Seen by speech-recommended pur�ed diet
-Continue with PT OT eval/now recommending rehab but cannot return to [facility] which was assisted living
Dementia
-Monitor for mood/behavior changes during hospital
Essential Hypertension
-Resume amlodipine
Hyperlipidemia
-Hold Crestor
BPH
-Resume finasteride and tamsulosin .patient is due for prostate surgery next week
DVT proph: SCDs
Code Status: Full Code
PT recommends rehab
Case management to look into disposition
General: Appears Chronically Ill
HEENT: Normocephalic
Respiratory: Clear to Auscultation
Cardiac: Regular Rhythm
Neuro: Awake and Alert
Anticipated Discharge: Today
Subjective/Interval History
-
Date of Service: August 02, 2023
denies pain
Objective Data
-
Vital Signs:
Vital Signs
Temp Pulse Resp BP Pulse Ox
97.8 F 64 16 129/80 98
08/02/23 07:00 08/02/23 07:00 08/02/23 07:00 08/02/23 07:00 08/02/23 07:00
I&O
08/01/23 08/02/23 08/03/23
06:59 06:59 06:59
Intake Total 960 / 960 780 / 780
Output Total 1350 / 1350 1950 / 1950
Balance -390 / -390 -1170 / -1170
[2023-08-02] MEDS: NORVASC 10 MG PO (10:02)
--- NOTE | 2023-08-02 10:16 | CM ---
entered order for dc.
Spoke with Rose Marie at [facility] bed ready today.
Spoke with son Edis he is in agreement with dc to [facility].
Reviewed IMM all questions were answered.
Edis will tell his mom abut [facility].
Edis requested ambulance Medical nec form completed.
RN aware of above
[facility]
report [phone]
fax [phone]
PLAN To [facility]
[2023-08-02 11:25] VITALS: BP 136/67
--- NOTE | 2023-08-02 12:21 | PTCARENOTE ---
Peyton Kang run twice at [phone] with no answer.
--- NOTE | 2023-08-02 12:39 | PTCARENOTE ---
Called [facility] for a third time to give report for pt going to rehab with no answer again.
== END 2023-08-02 14:35 | DRG 698 ==
LOC: 4 EAST ACU 22:57
PROVIDERS: Clinical Nurse Specialist Family Health; Emergency Medicine; Physician Assistant Medical; ADMITTING PHYSICIAN Hospitalist; ATTENDING PHYSICIAN Internal Medicine; EMERGENCY PHYSICIAN Emergency Medicine; FAMILY PHYSICIAN Internal Medicine
DX: T83.511A Infection and inflammatory reaction due to indwelling urethral catheter, initial encounter (principal); A41.59 Other Gram-negative sepsis; N39.0 Urinary tract infection, site not specified; G20.A1 Parkinson's disease without dyskinesia, without mention of fluctuations; F02.80 Dementia in other diseases classified elsewhere, unspecified severity, without behavioral disturbance, psychotic disturbance, mood disturbance, and anxiety; I10 Essential (primary) hypertension; B96.4 Proteus (mirabilis) (morganii) as the cause of diseases classified elsewhere; Y84.6 Urinary catheterization as the cause of abnormal reaction of the patient, or of later complication, without mention of misadventure at the time of the procedure; E86.0 Dehydration; K59.00 Constipation, unspecified; N40.0 Benign prostatic hyperplasia without lower urinary tract symptoms; E78.5 Hyperlipidemia, unspecified; K21.9 Gastro-esophageal reflux disease without esophagitis; R26.2 Difficulty in walking, not elsewhere classified; R53.81 Other malaise; Z96.651 Presence of right artificial knee joint; Z79.899 Other long term (current) drug therapy; Z87.891 Personal history of nicotine dependence
CPT/HCPCS: 51702; 80048; 80053; 81003; 81015; 83605; 85025; 85027; 87040; 87070; 87086; 87088; 87149; 87186; 87205; 92610; 96361; 96374; 96375; 97167; 97530; 97535; 99285

== ENCOUNTER → 2023-08-04 13:16 | Outpatient (REF) | payer OTHER, MEDICARE, BC, SELFPAY ==
[2023-08-04 14:23] LABS: % Immature Granulocytes 1.7 % (0-0.5); % Lymphocytes 20.3 % (20.5-51.1); % Monocytes 6.2 % (1.7-9.3); % Neutrophils 65.8 % (42.2-75.2); Absolute Basophils 0.1 10^3/uL (0-0.2); Absolute Eosinophils 0.5 10^3/uL (0-0.7); Absolute Immature Granulocytes 0.2 10^3/uL (0-0.05); Absolute Lymphocytes 2.2 10^3/uL (1.2-3.4); Absolute Monocytes 0.7 10^3/uL (0.1-0.6); Hematocrit 40.4 % (39.0-52.0); Hemoglobin 13.2 g/dL (13.0-18.0); Mean Corp Hgb Conc. 32.7 g/dL (33.0-37.0); Mean Corpuscular Hgb 27.8 pg (27.0-31.0); Mean Corpuscular Volume 85.2 fL (80.0-94.0); Mean Platelet Volume 9.9 fL (7.4-10.4); Nucleated Red Blood Cells % 0 % (-); Platelet Count 389 10^3/uL (130-400); Red Blood Cell Count 4.74 10^6/uL (4.70-6.10); Red Cell Dist. Width 14.1 % (11.5-14.5); White Blood Cell Count 10.6 10^3/uL (4.8-10.8)
[2023-08-04 15:45] LABS: Blood Urea Nitrogen 30 mg/dl (9-20); Calcium 8.9 mg/dl (8.4-10.2); Carbon Dioxide 23 mmol/L (22-30); Chloride 101 mmol/L (98-107); Glucose 81 mg/dl (70-99); Potassium 4.5 mmol/L (3.5-5.1); Sodium 136 mmol/L (135-145); eGFR > 60.00
== END ==
LOC: OLABP 13:16
PROVIDERS: ATTENDING PHYSICIAN Family Medicine
DX: A41.9 Sepsis, unspecified organism (principal); T83.511D Infection and inflammatory reaction due to indwelling urethral catheter, subsequent encounter; B96.4 Proteus (mirabilis) (morganii) as the cause of diseases classified elsewhere; R33.9 Retention of urine, unspecified; M62.81 Muscle weakness (generalized); I10 Essential (primary) hypertension; G20.A1 Parkinson's disease without dyskinesia, without mention of fluctuations; F03.90 Unspecified dementia, unspecified severity, without behavioral disturbance, psychotic disturbance, mood disturbance, and anxiety
CPT/HCPCS: 36415; 80048; 85025

== ENCOUNTER → 2023-08-17 11:20 | Outpatient (REF) | payer OTHER, MEDICARE, BC, SELFPAY ==
[2023-08-17 12:36] LABS: % Basophils 0.9 % (0-2); % Eosinophils 5.2 % (0-6); % Immature Granulocytes 0.2 % (0-0.5); % Lymphocytes 34.8 % (20.5-51.1); % Monocytes 11.5 % (1.7-9.3); % Neutrophils 47.4 % (42.2-75.2); Absolute Basophils 0.1 10^3/uL (0-0.2); Absolute Eosinophils 0.3 10^3/uL (0-0.7); Absolute Lymphocytes 1.9 10^3/uL (1.2-3.4); Absolute Monocytes 0.6 10^3/uL (0.1-0.6); Absolute Neutrophils 2.7 10^3/uL (1.4-6.5); Hematocrit 38.6 % (39.0-52.0); Hemoglobin 12.5 g/dL (13.0-18.0); Mean Corp Hgb Conc. 32.4 g/dL (33.0-37.0); Mean Corpuscular Hgb 27.5 pg (27.0-31.0); Mean Platelet Volume 10.9 fL (7.4-10.4); Nucleated Red Blood Cells % 0 % (-); Platelet Count 211 10^3/uL (130-400); Red Blood Cell Count 4.54 10^6/uL (4.70-6.10); Red Cell Dist. Width 15.2 % (11.5-14.5); White Blood Cell Count 5.6 10^3/uL (4.8-10.8)
[2023-08-17 13:04] LABS: ALT (SGPT) < 10 U/L (0-50); AST (SGOT) 22 U/L (17-59); Albumin 3.7 g/dl (3.5-5.0); Alkaline Phosphatase 100 U/L (38-126); Blood Urea Nitrogen 37 mg/dl (9-20); Calcium 8.6 mg/dl (8.4-10.2); Carbon Dioxide 22 mmol/L (22-30); Chloride 103 mmol/L (98-107); Glucose 80 mg/dl (70-99); Potassium 4.2 mmol/L (3.5-5.1); Sodium 137 mmol/L (135-145); Total Bilirubin 0.5 mg/dl (0.2-1.3); Total Protein 6.6 g/dl (6.3-8.2); eGFR > 60.00
== END ==
LOC: OLABP 11:20
PROVIDERS: ATTENDING PHYSICIAN Family Medicine
DX: A41.9 Sepsis, unspecified organism (principal); T83.511D Infection and inflammatory reaction due to indwelling urethral catheter, subsequent encounter; B96.4 Proteus (mirabilis) (morganii) as the cause of diseases classified elsewhere; R33.9 Retention of urine, unspecified; M62.81 Muscle weakness (generalized); I10 Essential (primary) hypertension; G20.A1 Parkinson's disease without dyskinesia, without mention of fluctuations; F03.90 Unspecified dementia, unspecified severity, without behavioral disturbance, psychotic disturbance, mood disturbance, and anxiety
CPT/HCPCS: 36415; 80053; 85025

== ENCOUNTER → 2023-09-08 11:52 | Outpatient (REF) | payer MEDICARE, BC, SELFPAY ==
[2023-09-08 14:56] LABS: Urine Albumin Trace (Neg - Trace); Urine Bilirubin Negative (Negative); Urine Character Very Cloudy (Clear); Urine Color Yellow; Urine Glucose Negative (Negative); Urine Ketone Negative (Negative); Urine Leukocyte 2+ (Negative); Urine Nitrite Positive (Negative); Urine Occult Blood 3+ (Negative); Urine Urobilinogen Negative (Neg - 1+)
[2023-09-08 15:37] LABS: Urine Squamous Cell 0-2 /LPF (Few)
[2023-09-08 15:38] LABS: Urine Bacteria Many (Negative); Urine White Cell 70-80 /HPF (0-5)
== END ==
LOC: OLABPATH 11:52
PROVIDERS: ATTENDING PHYSICIAN Internal Medicine
DX: N39.0 Urinary tract infection, site not specified (principal)
CPT/HCPCS: 81003; 81015; 87086

== ENCOUNTER 2023-09-17 03:43 | Emergency (ER) | payer MEDICARE, BC, SELFPAY ==
[2023-09-17 03:45] VITALS: BP 124/71
[2023-09-17 03:55] VITALS: BP 124/71
--- NOTE | 2023-09-17 03:57 | ED.GENMED ---
History of Present Illness
General
Chief Complaint: Catheter/Tube Problem
Source: patient, records and ambulance crew
Time Seen by Provider: 09/17/23 03:47
Nursing documentation reviewed up to this point in time: agreed with
History of Present Illness
History of Present Illness:
83-year-old male with a past medical history of hypertension, GERD, Parkinson's disease, mild dementia who presents to the emergency room from [facility]; he presents via EMS for evaluation of a clogged Camara catheter. Although he has a listed
history of dementia patient is alert and able to give some history. He says that he is having discomfort in his suprapubic region. Denies any other complaints. I spoke to the correction staff; they report catheter has been in place for 3 to 4
weeks. He arrives with a [address] [place] [address] catheter in place which is not putting out urine. Staff says it is not functioning tonight. They tried flushing without success.
Past History
Past History
ED Past Medical History: GERD and Other (Chronic indwelling camara, Dementia, Parkinson's, )
ED Past Surgical History: Orthopedic (Right Total knee replacement)
Social History
Tobacco: Former smoker
Alcohol: None
Personal:
Living: correction
Review of Systems
Review of Systems
Unable to obtain full review of systems at this time due to: dementia
All Other Systems: Not applicable
Phy Exam
Physical Exam
Physical Exam:
General: Awake, alert
Head: Normocephalic, atraumatic
Eyes: Conjunctiva normal
Throat: Airway intact, handling secretions
Neck: Trachea midline, supple without meningismus
Lungs: Clear to auscultation bilaterally, no wheezing, rales, rhonchi
Heart: Regular rate and rhythm, no murmurs, gallops, or rubs
Abd: Soft, non distended, suprapubic tenderness with palpable bladder (bladder scan greater than 500 cc retained)
Extremities: Warm well-perfused
Scores
Heart Failure Risk
Heart Failure Risk Score: Not Applicable
Heart Score for Chest Pain Patients
STEMI patient?: Not applicable
Withdrawal Assessment of Alcohol
Withdrawal Assessment Completed?: Not applicable
Course
Orders/Labs/Results
Orders:
Orders
09/17/23 04:10
Urinalysis Reflex To Culture Urgent
Date Specimen was Collected: 09/17/23
Time Specimen was Collected: 04:04
Urine Microscopic Reflex Cult Urgent
Urine Culture Urgent
TACHO Source: U
Specimen Description:
Date Specimen was Collected: 09/17/23
Time Specimen was Collected: 04:04
09/17/23 04:41
Ciprofloxacin HCl [Cipro] 500 mg PO ONCE ONE
Abnormal Lab Results
09/17/23
04:10
Ur Occult Blood Reflex 2+ A
(Negative)
Urine Nitrite (Reflex) Positive A
(Negative)
Leukocyte Esterase Rfl 2+ A
(Negative)
Urine Albumin (Reflex) 1+ A
(Neg - Trace)
Vital Signs
Initial and Last Documented VS:
Initial Vital Signs
Temp Pulse Resp BP Pulse Ox
36.4 C 63 18 124/71 98
09/17/23 03:45 09/17/23 03:45 09/17/23 03:45 09/17/23 03:45 09/17/23 03:45
Last Documented Vital Signs
Temp Pulse Resp BP Pulse Ox
36.4 C 63 18 135/71 96
09/17/23 03:45 09/17/23 03:45 09/17/23 03:45 09/17/23 04:00 09/17/23 04:15
MDM/Problems Addressed
Differential Diagnosis Includes:
Acute urinary retention
MDM/Problems Addressed:
83-year-old male with chronic Camara catheter presents with a clogged Camara catheter and increasing lower abdominal pressure. Attempted to flush without success. Catheter was replaced at bedside with output of cloudy yellow urine. Patient feeling
much better after catheter exchange. Given appearance of urine will send UA for possible UTI that may have led to increased sediment and Camara catheter clogging.
UA positive for nitrites with positive leuk esterase�certainly patient could be contaminated but given increased sediment and clogging of catheter will cover with antibiotics. He has been out Proteus in the past, reviewed sensitivities will treat
with Cipro. Stable for discharge at this point. Patient happy with this plan. All questions answered. Spoke with correction to update.
Chronic conditions affecting care:
BPH
*Pulse Oximetry
Patient hypoxic: no
*Critical Care Note
Total Time (30-74mins, 75-104mins- exclusive of procedures): Not Applicable
Data Reviewed
Source: patient, records and ambulance crew
Patient Management
Discussion with other providers: snf staff (Discussed directly with correction staff)
ED Attending Note
-
Portions of this chart may have been created with voice recognition software.� Occasional wrong word or��sound alike� substitutions may have occurred due to the inherent limitations of voice recognition software.
Discharge Plan
Departure
Patient Disposition: Home (Routine Discharge)
Date of Disposition: 09/17/23
Time of Disposition: 04:43
Patient with high blood pressure during this ER visit?: No
Discharge Problem:
Obstructed Camara catheter
Instructions: How to Care for Your Camara Catheter, Male
Prescriptions:
New
ciprofloxacin HCl [Cipro] 500 mg tablet
500 mg PO BID 7 Days Qty: 14 0RF
No Action
acetaminophen [Tylenol] 325 mg Tablet
650 mg PO DAILY
polyethylene glycol 3350 [Miralax] 17 gram Powder In Packet
17 g PO DAILYPRN PRN (Reason: constipation)
carbidopa-levodopa 25-250 mg Tablet
1.5 tab PO QID
amantadine HCl 100 mg Capsule
100 mg PO BID
tamsulosin [Flomax] 0.4 mg Capsule
0.4 mg PO HS
amlodipine [Norvasc] 10 mg Tablet
10 mg PO DAILY
finasteride 5 mg Tablet
5 mg PO DAILY
rosuvastatin 10 mg Tablet
10 mg PO HS
chlorhexidine gluconate 0.12 % Mouthwash
15 ml mucous membrane BID
miconazole nitrate [Miconazorb AF] 2 % Powder
1 applic topical BID Qty: 0 0RF
Referrals:
Robert Colbert MD [Active] - Call in 1-3 days for appt (Urology)
Activity Restrictions/Additional Instructions:
Thank you for visiting the Emergency Department at [facility].
1. Please schedule a follow up appointment as directed. Call first thing tomorrow morning to make an appointment.
2. If indicated, please take your medications as instructed and indicated on discharge paperwork.
3. If any of your symptoms do not improve, or persist, or become more severe within 6-12 hours, please return to the emergency department for further care.
4. Please return to the emergency department if you develop a headache, neck pain/stiffness, fever greater than 100.4F, chest pain, shortness of breath, persistent nausea, vomiting, slurred speech, difficulty walking, numbness/tingling, weakness,
signs of infection or any other symptoms that are worrisome to you.
Please call [phone] if you have any questions.
Interventions
Interventions:
*Risk Screen - Suicide Last Done: 09/17/23 03:45
*General Assessment Last Done: 09/17/23 03:45
*Neglect/Abuse Screening Last Done: 09/17/23 03:45
ED- Fall Risk Assessment Last Done: 09/17/23 04:00
ID-Covvnj-Htengtnfdh Assessment Last Done: 09/17/23 04:00
ED-Male Genitourinary Assessment Last Done: 09/17/23 04:00
Discharge Date and Time
Print Language: AFGHAN
[2023-09-17 04:00] VITALS: BP 135/71; BMI 22.2
[2023-09-17 04:22] LABS: Urine Albumin 1+ (Neg - Trace); Urine Bilirubin Negative (Negative); Urine Character Very Cloudy (Clear); Urine Color Yellow; Urine Glucose Negative (Negative); Urine Ketone Negative (Negative); Urine Leukocyte 2+ (Negative); Urine Nitrite Positive (Negative); Urine Occult Blood 2+ (Negative); Urine Specific Gravity 1.015 (<1.030); Urine Urobilinogen Negative (Neg - 1+)
[2023-09-17 04:51] LABS: Urine White Cell >100 /HPF (0-5)
[2023-09-17 04:52] LABS: Urine Amorphous Seen; Urine Bacteria Many (Negative)
[2023-09-17 04:53] LABS: Urine Squamous Cell SEEN /LPF (Few)
[2023-09-17 05:00] VITALS: BP 114/65
[2023-09-17] MEDS: CIPRO 500 MG PO (05:06)
== END 2023-09-17 05:58 | disposition home or self-care (01) ==
LOC: EMR 03:43
PROVIDERS: EMERGENCY PHYSICIAN Emergency Medicine; FAMILY PHYSICIAN Internal Medicine
DX: T83.091A Other mechanical complication of indwelling urethral catheter, initial encounter (principal); Y84.6 Urinary catheterization as the cause of abnormal reaction of the patient, or of later complication, without mention of misadventure at the time of the procedure; Y73.1 Therapeutic (nonsurgical) and rehabilitative gastroenterology and urology devices associated with adverse incidents; I10 Essential (primary) hypertension; K21.9 Gastro-esophageal reflux disease without esophagitis; G20.A1 Parkinson's disease without dyskinesia, without mention of fluctuations; F02.A0 Dementia in other diseases classified elsewhere, mild, without behavioral disturbance, psychotic disturbance, mood disturbance, and anxiety; N40.0 Benign prostatic hyperplasia without lower urinary tract symptoms; Z87.891 Personal history of nicotine dependence
CPT/HCPCS: 99283; 51702; 81003; 81015; 87086

== ENCOUNTER 2023-10-26 10:34 | Emergency (ER) | payer MEDICARE, BC, SELFPAY ==
[2023-10-26 10:38] VITALS: BP 135/78
[2023-10-26 11:09] VITALS: BMI 22.3
--- NOTE | 2023-10-26 11:24 | ED.GENMED ---
History of Present Illness
General
Chief Complaint: Male Genito-Urinary Symptoms
Source: patient
Exam Limitations: none
Time Seen by Provider: 10/26/23 11:05
Nursing documentation reviewed up to this point in time: agreed with
History of Present Illness
History of Present Illness:
83 yr old male presents to the ER for evaluation. at bedside reports patient is a resident of pending sale to [facility] and was had a catheter off and on since February. Catheter was removed this morning prior to arrival however now patient has pain in the
pelvis and penis. He is unable to urinate.
Nurse at [facility] reports pt had a new camara inserted yesterday but this am he was complaining of pain to his penis and so she removed it. She reports no fever.
reports pt does have upcoming urologist appointment next several weeks
Past History
Past History
ED Past Medical History: GERD and Other (Chronic indwelling camara, Dementia, Parkinson's, )
ED Past Surgical History: Orthopedic (Right Total knee replacement)
Social History
Tobacco: Former smoker
Alcohol: None
Personal:
Living: care home
Review of Systems
Review of Systems
Allergies reviewed?: Yes
Other source history: family
All Other Systems: ROS reviewed and negative except as documented in HPI and ROS
Constitutional: Reports no symptoms; Denies fever, fatigue or chills
ABD/GI: Reports abdominal pain; Denies nausea, vomiting or diarrhea
: Reports other (pain to penis unable to urinate )
Musculoskeletal: Reports no symptoms; Denies back pain
Skin: Reports no symptoms
Neurological: Reports no symptoms
Phy Exam
General Physical Exam
General Presentation: no apparent distress
General Skin: warm and dry
General Habitus: elderly
General Mental: alert
General Hydration: other (slightly dry mucus membranes )
Gastrointestinal Exam
Gastrointestinal Exam: soft and other (mild suprapubic tenderness )
Neurological Exam
Neurological Exam: alert
Musculoskeletal Exam
Musculoskeletal Exam: full ROM
Skin Exam
Skin Exam: normal color and warm/dry
Psychiatric Exam
Psychiatric Exam: normal mood/affect
Course
Orders/Labs/Results
Orders:
Orders
10/26/23 11:31
Bladder Scan- Treatment ONCE
10/26/23 11:36
IV Insert/Care/Rem.- Treatment PRN
10/26/23 12:00
Complete Blood Count/With Diff Urgent
Comprehensive Metabolic Panel Urgent
UA Reflex to Culture [Urinalysis Reflex To Culture] Urgent
Date Specimen was Collected: 10/26/23
Time Specimen was Collected: 11:54
Urine Microscopic Reflex Cult Urgent
Urine Culture Urgent
TACHO Source: U
Specimen Description:
Date Specimen was Collected: 10/26/23
Time Specimen was Collected: 11:54
10/26/23 13:50
0.9% Sodium Chloride 500 ml [Nss] 500 ml IV BOLUS
10/26/23 14:03
Ciprofloxacin HCl [Cipro] 500 mg PO NOW STA
10/26/23 15:06
CT Abd/pel Without Iv Or Oral Urgent
Comment:
Reason For Exam: abd pain
Abnormal Lab Results
10/26/23
12:00
WBC 16.3 H 10^3/uL
(4.8-10.8)
Abs Immat Gran (auto) 0.1 H 10^3/uL
(0-0.05)
Absolute Neuts (auto) 13.9 H 10^3/uL
(1.4-6.5)
Absolute Monos (auto) 0.8 H 10^3/uL
(0.1-0.6)
Neutrophils % 85.3 H %
(42.2-75.2)
Lymphocytes % 8.8 L %
(20.5-51.1)
BUN 31 H mg/dl
(9-20)
Glucose 123 H mg/dl
(70-99)
Ur Occult Blood Reflex 2+ A
(Negative)
Leukocyte Esterase Rfl 2+ A
(Negative)
Urine RBC 3-6 A /HPF
(0-2)
Urine WBC (Reflex) 40-50 A /HPF
(0-5)
Urine Bacteria (Reflex) Few A
(Negative)
Urine Albumin (Reflex) 1+ A
(Neg - Trace)
10/26/23 12:00
10/26/23 12:00
Vital Signs
Initial and Last Documented VS:
Initial Vital Signs
Temp Pulse Resp BP Pulse Ox
97.9 F 101 16 135/78 98
10/26/23 10:38 10/26/23 10:38 10/26/23 10:38 10/26/23 10:38 10/26/23 10:38
Last Documented Vital Signs
Temp Pulse Resp BP Pulse Ox
97.8 F 68 15 126/66 98
10/26/23 14:00 10/26/23 14:00 10/26/23 14:00 10/26/23 14:00 10/26/23 13:30
Flake Drier consulted with Physician
Flake Drier consulted with physician?: Yes
Name of Physician Consulted: Shavonne
MDM/Problems Addressed
Differential Diagnosis Includes:
not limited to : Urinary retention, uti
MDM/Problems Addressed:
Patient is a 83-year-old male from pending sale to [facility] currently who has had a Camara for the past 4 months. Nurse reports patient had a Camara catheter replaced yesterday but today was complaining of pain in the penis in the pelvic area and so she removed
it. Upon presentation to the ER patient complained of lower abdominal pain and pain in the penis. He felt the urge to urinate but was not able to do so bladder scan shows 400 cc of urine. New Camara was inserted and patient did drain 400 cc of
urine that was cloudy. Patient is afebrile here and white count however is elevated at 16.3. Urine does show 40�50 white blood cells. Despite patient having a chronic Camara with complaints of discomfort and white blood cells in the ER with an
elevated white count we will treat for UTI. pt in addition is dehydrated with a BUN of 31 , nss bolus given. CAT scan was done to ensure no stone or other cause of pain. CAT scan shows that the urinary bladder wall is thickened fat stranding
raising concern for cystitis as planned will treat for UTI with Cipro. Patient is originally from [facility] however is going to [facility]. will drive pt directly to facility.
Chronic conditions affecting care:
Dementia ,Camara catheter for the past 4 months
*Radiology
Radiology exam reviewed: radiology read reviewed
*Pulse Oximetry
Patient hypoxic: no
*Critical Care Note
Total Time (30-74mins, 75-104mins- exclusive of procedures): Not Applicable
ED Attending Note
-
Portions of this chart may have been created with voice recognition software.� Occasional wrong word or��sound alike� substitutions may have occurred due to the inherent limitations of voice recognition software.
Discharge Plan
Departure
Patient Disposition: Home (Routine Discharge)
Date of Disposition: 10/26/23
Time of Disposition: 15:59
Patient with high blood pressure during this ER visit?: No
Covid-19: Not Applicable
Discharge Problem:
Acute UTI, Urinary tract infection, Catheter-associated urinary tract infection
Instructions: How to Care for Your Camara Catheter, Male, Urinary Tract Infection, Adult ED
Prescriptions:
New
ciprofloxacin HCl [Cipro] 500 mg tablet
500 mg PO BID Qty: 14 0RF
No Action
acetaminophen [Tylenol] 325 mg Tablet
650 mg PO DAILY
polyethylene glycol 3350 [Miralax] 17 gram Powder In Packet
17 g PO DAILYPRN PRN (Reason: constipation)
carbidopa-levodopa 25-250 mg Tablet
1.5 tab PO QID
amantadine HCl 100 mg Capsule
100 mg PO BID
tamsulosin [Flomax] 0.4 mg Capsule
0.4 mg PO HS
amlodipine [Norvasc] 10 mg Tablet
10 mg PO DAILY
finasteride 5 mg Tablet
5 mg PO DAILY
rosuvastatin 10 mg Tablet
10 mg PO HS
chlorhexidine gluconate 0.12 % Mouthwash
15 ml mucous membrane BID
miconazole nitrate [Miconazorb AF] 2 % Powder
1 applic topical BID Qty: 0 0RF
ciprofloxacin HCl [Cipro] 500 mg tablet
500 mg PO BID 7 Days Qty: 14 0RF
Referrals:
Keila Jamil MD [Family Provider] -
Activity Restrictions/Additional Instructions:
As discussed patient must take antibiotic, Cipro twice daily for the next 7 days for urinary tract infection with Camara catheter. Patient's white count was mildly elevated today.
it is recommended the patient have labs rechecked in the next several days.
Patient has a Camara catheter in place and must see his urologist as scheduled.
Return if any worsening of symptoms or go to the nearest ER for increased pain fever chills nausea vomiting
Interventions
Interventions:
*Risk Screen - Suicide Last Done: 10/26/23 10:38
*General Assessment Last Done: 10/26/23 10:38
*Neglect/Abuse Screening Last Done: 10/26/23 10:38
ED- Fall Risk Assessment Last Done: 10/26/23 11:09
*ED COVID-19 Vaccine History Last Done: 10/26/23 11:09
ED-Male Genitourinary Assessment Last Done: 10/26/23 11:09
Discharge Date and Time
Print Language: LATVIAN
[2023-10-26 11:58] VITALS: BP 160/82
[2023-10-26 12:00] VITALS: BP 150/73
[2023-10-26 12:18] LABS: % Basophils 0.6 % (0-2); % Eosinophils 0.2 % (0-6); % Immature Granulocytes 0.3 % (0-0.5); % Lymphocytes 8.8 % (20.5-51.1); % Monocytes 4.8 % (1.7-9.3); % Neutrophils 85.3 % (42.2-75.2); Absolute Basophils 0.1 10^3/uL (0-0.2); Absolute Immature Granulocytes 0.1 10^3/uL (0-0.05); Absolute Lymphocytes 1.4 10^3/uL (1.2-3.4); Absolute Monocytes 0.8 10^3/uL (0.1-0.6); Absolute Neutrophils 13.9 10^3/uL (1.4-6.5); Hematocrit 41.6 % (39.0-52.0); Hemoglobin 14.4 g/dL (13.0-18.0); Mean Corp Hgb Conc. 34.6 g/dL (33.0-37.0); Mean Corpuscular Hgb 28.4 pg (27.0-31.0); Mean Corpuscular Volume 82.1 fL (80.0-94.0); Mean Platelet Volume 9.6 fL (7.4-10.4); Nucleated Red Blood Cells % 0 % (-); Platelet Count 345 10^3/uL (130-400); Red Blood Cell Count 5.07 10^6/uL (4.70-6.10); Red Cell Dist. Width 14.2 % (11.5-14.5); White Blood Cell Count 16.3 10^3/uL (4.8-10.8)
[2023-10-26 12:33] LABS: ALT (SGPT) < 10 U/L (0-50); AST (SGOT) 19 U/L (17-59); Albumin 4.6 g/dl (3.5-5.0); Alkaline Phosphatase 111 U/L (38-126); Blood Urea Nitrogen 31 mg/dl (9-20); Calcium 10.1 mg/dl (8.4-10.2); Carbon Dioxide 25 mmol/L (22-30); Chloride 102 mmol/L (98-107); Estimated Creatinine Clearance 47 ml/min; Glucose 123 mg/dl (70-99); Potassium 4.4 mmol/L (3.5-5.1); Sodium 142 mmol/L (135-145); Total Bilirubin 0.8 mg/dl (0.2-1.3); Total Protein 7.6 g/dl (6.3-8.2); eGFR > 60.00
[2023-10-26 12:35] LABS: Urine Albumin 1+ (Neg - Trace); Urine Bilirubin Negative (Negative); Urine Character Very Cloudy (Clear); Urine Color Yellow; Urine Glucose Negative (Negative); Urine Ketone Negative (Negative); Urine Leukocyte 2+ (Negative); Urine Nitrite Negative (Negative); Urine Occult Blood 2+ (Negative); Urine Urobilinogen Negative (Neg - 1+)
[2023-10-26 12:50] LABS: Urine White Cell 40-50 /HPF (0-5)
[2023-10-26 12:51] LABS: Urine Bacteria Few (Negative)
[2023-10-26 13:00] VITALS: BP 111/65
[2023-10-26 14:00] VITALS: BP 126/66
[2023-10-26] MEDS: NSS 500 IV (14:01)
[2023-10-26] MEDS: CIPRO 500 MG PO (14:08)
== END 2023-10-26 16:26 | disposition home or self-care (01) ==
LOC: EMR 10:34
PROVIDERS: Nurse Practitioner; EMERGENCY PHYSICIAN Emergency Medicine; FAMILY PHYSICIAN Internal Medicine
DX: N39.0 Urinary tract infection, site not specified (principal); R10.30 Lower abdominal pain, unspecified; T83.518A Infection and inflammatory reaction due to other urinary catheter, initial encounter; Y84.6 Urinary catheterization as the cause of abnormal reaction of the patient, or of later complication, without mention of misadventure at the time of the procedure; F02.80 Dementia in other diseases classified elsewhere, unspecified severity, without behavioral disturbance, psychotic disturbance, mood disturbance, and anxiety; G20.A1 Parkinson's disease without dyskinesia, without mention of fluctuations; K21.9 Gastro-esophageal reflux disease without esophagitis; R56.9 Unspecified convulsions; I10 Essential (primary) hypertension; Z96.651 Presence of right artificial knee joint; Z87.891 Personal history of nicotine dependence
CPT/HCPCS: 99284; 51702; 51798; 74176; 80053; 81003; 81015; 85025; 87086